=== PATIENT | female | born 1990 | race Caucasian/White ===

== ENCOUNTER 2021-02-27 05:51 | Emergency (ER) | payer OTHER ==
[~2021-02-27 05:51] MED LIST: COLACE 100MG C100 MG PO; IBUPROFEN600 MG PO; PRENATAL VITAM1 EAC3 PO
== END 2021-02-27 15:30 | disposition short-term general hospital (02) ==
LOC: ER1 05:51
DX: O9A.219 Injury, poisoning and certain other consequences of external causes complicating pregnancy, unspecified trimester (principal); S92.001A Unspecified fracture of right calcaneus, initial encounter for closed fracture; S82.891A Other fracture of right lower leg, initial encounter for closed fracture; S80.11XA Contusion of right lower leg, initial encounter; S00.83XA Contusion of other part of head, initial encounter; O99.330 Smoking (tobacco) complicating pregnancy, unspecified trimester; Z3A.00 Weeks of gestation of pregnancy not specified; F17.200 Nicotine dependence, unspecified, uncomplicated; W54.1XXA Struck by dog, initial encounter; Y92.009 Unspecified place in unspecified non-institutional (private) residence as the place of occurrence of the external cause
CPT/HCPCS: 29515; 71111; 73590; 73610; 73630; 73700; 96374; 96375; 96376; 99284; J2270; J2405

== ENCOUNTER 2021-05-22 12:53 | Emergency (ER) | payer OTHER ==
[2021-05-22 14:33] LABS: RED BLOOD COUNT 4.03 M/UL (4.00-5.10); WHITE BLOOD COUNT 14.8 K/UL (4.5-11.0)
[2021-05-22 14:57] LABS: BUN/CREATININE RATIO 10 (0-10)
== END 2021-05-22 18:25 | disposition home or self-care (01) ==
LOC: ER1 12:53
PROVIDERS: Nurse Practitioner
DX: J10.1 Influenza due to other identified influenza virus with other respiratory manifestations (principal); Z20.822 Contact with and (suspected) exposure to COVID-19; F17.210 Nicotine dependence, cigarettes, uncomplicated
CPT/HCPCS: 0240U; 80053; 81001; 85025; 87081; 87086; 87880; 96374; 99283; J2405

== ENCOUNTER 2021-06-18 12:25 | Outpatient (CLI) | payer OTHER | END 2021-06-18 15:42 | disposition left against medical advice (07) | LOC: GENOP 12:25 | PROVIDERS: Obstetrics & Gynecology | DX: O47.1 False labor at or after 37 completed weeks of gestation (principal); O99.333 Smoking (tobacco) complicating pregnancy, third trimester; F17.210 Nicotine dependence, cigarettes, uncomplicated; Z3A.38 38 weeks gestation of pregnancy | CPT/HCPCS: 80307; 81001; G0463 ==

== ENCOUNTER 2021-06-20 19:16 | Inpatient (IN) | payer OTHER ==
[2021-06-20 21:11] LABS: HEMOGLOBIN 10.5 gm/dl (12.3-15.3); RED BLOOD COUNT 4.44 M/UL (4.00-5.10); WHITE BLOOD COUNT 17.5 K/UL (4.5-11.0)
[2021-06-21] MEDS ORDERED: METHOCARBAMOL500 MG PO (05:00)
[2021-06-21] MEDS ORDERED: IBUPROFEN600 MG PO (10:30)
[2021-06-21] MEDS ORDERED: COLACE 100MG C100 MG PO (10:30)
[2021-06-22 02:52] LABS: HEMOGLOBIN 9.1 gm/dl (12.3-15.3)
[2021-06-23] MEDS ORDERED: MEDROL4 MG PO (09:47)
[2021-06-23] MEDS ORDERED: BENADRYL25 MG PO (09:47)
== END 2021-06-22 19:18 | disposition home or self-care (01) | DRG 807 ==
LOC: GENOP 19:16 → OB 21:00
PROVIDERS: Obstetrics & Gynecology; ADMIT Obstetrics & Gynecology
PROC: 10E0XZZ Delivery of Products of Conception, External Approach (ICD-10-PCS; principal; 2021-06-21)
PROC: 3E033VJ Introduction of Other Hormone into Peripheral Vein, Percutaneous Approach (ICD-10-PCS; 2021-06-21)
PROC: 4A1H7CZ Monitoring of Products of Conception, Cardiac Rate, Via Natural or Artificial Opening (ICD-10-PCS; 2021-06-21)
PROC: 10H073Z Insertion of Monitoring Electrode into Products of Conception, Via Natural or Artificial Opening (ICD-10-PCS; 2021-06-21)
PROC: 0UH97HZ Insertion of Contraceptive Device into Uterus, Via Natural or Artificial Opening (ICD-10-PCS; 2021-06-21)
PROC: 3E0234Z Introduction of Serum, Toxoid and Vaccine into Muscle, Percutaneous Approach (ICD-10-PCS; 2021-06-21)
DX: O99.824 Streptococcus B carrier state complicating childbirth (principal); Z37.0 Single live birth; O62.2 Other uterine inertia; O42.90 Premature rupture of membranes, unspecified as to length of time between rupture and onset of labor, unspecified weeks of gestation; O99.334 Smoking (tobacco) complicating childbirth; F17.200 Nicotine dependence, unspecified, uncomplicated; Z20.822 Contact with and (suspected) exposure to COVID-19; Z98.890 Other specified postprocedural states; Z3A.38 38 weeks gestation of pregnancy; Z28.310 Unvaccinated for COVID-19; Z23 Encounter for immunization
CPT/HCPCS: 36415; 80307; 82800; 83518; 85014; 85018; 85025; 90715; J1720; J2210; J2405; J7030; U0002

== ENCOUNTER 2021-06-23 07:42 | Emergency (ER) | payer OTHER ==
[~2021-06-23 07:42] MED LIST changes: +METHOCARBAMOL500 MG PO
[2021-06-23] MEDS ORDERED: BENADRYL25 MG PO (09:47)
[2021-06-23] MEDS ORDERED: MEDROL4 MG PO (09:47)
== END 2021-06-23 11:30 | disposition home or self-care (01) ==
LOC: ER1 07:42
DX: T78.40XA Allergy, unspecified, initial encounter (principal); F17.200 Nicotine dependence, unspecified, uncomplicated
CPT/HCPCS: 96372; 96374; 96375; 99283; J0171; J1200; J2930